=== PATIENT | female | born 1970 | race Two or more races ===

== ENCOUNTER 2017-12-06 08:34 | Outpatient (CLI) | payer OTHER ==
[~2017-12-06 08:34] MED LIST: FLUCONAZOLE200 MG PO; PERCOCET 5/321 UDTAB PO; ULTRACET; ZYRTEC10 MG
== END 2017-12-06 08:40 | disposition home or self-care (01) ==
LOC: SONOGRAMA 08:34
DX: E06.1 Subacute thyroiditis (principal)

== ENCOUNTER 2018-08-11 07:12 | Outpatient (CLI) | payer OTHER | END 2018-08-11 07:27 | disposition home or self-care (01) | LOC: TOM 07:12 | DX: N20.0 Calculus of kidney (principal) ==

== ENCOUNTER 2018-10-28 08:19 | Day surgery (SDC) | payer OTHER ==
[~2018-10-28 08:19] MED LIST changes: +MEDROL4 MG PO; +PROTONIX40 MG PO; +SINGULAIR10 MG PO; +SYMBICORT 16010.2 GM IH; +VENTOLIN HFA18 GM IH; +VISTARIL25 MG PO; +ZANTAC300 MG PO
== END 2018-10-28 12:20 | disposition home or self-care (01) ==
LOC: CIR LITO 08:19 → CIR.AMB 09:30 → CIR LITO 09:30
DX: N20.0 Calculus of kidney (principal)

== ENCOUNTER 2018-10-30 01:23 | Day surgery (SDC) | payer OTHER ==
[~2018-10-30] VITALS: Ht 157.5 cm; Wt 68.0 kg
--- NOTE | 2018-10-30 01:48 | NUR ---
SE RECIBE PTE ALERTA Y ORIENTADA POR CHEVY. PTE REFIERE DOLOR EN COSTADO DIEGO Y VOMITOS X6 EN LA NOCHE.
--- NOTE | 2018-10-30 04:53 | NUR ---
EVALUA PACIENTE Y ORDENA TX MEDICO DEL CUAL PACIENTE ES ORIENTADO,EL MISMO REFIERE ENTENDER.SE COLECTAN MUESTRAS DE LABORATORIOS Y ADMINISTRAN MEDICAMENTO LOVE ORDEN MEDICA SIGUIENDO MEDIDAS ASEPTICAS. PROCEDIMIENTOS LLEVADOS A CABO POR YMIKE.
--- NOTE | 2018-10-30 08:56 | NUR ---
PTE ALERTA Y ORIENTADA X3 ESFERAS,EN CHRISTINE CON BARANDAS ELEVADAS,AREA DE VENOPUNCION PATENTE Y MIRIAM DE EDEMA CON FLUIDOS DE MANTENIMIENTO BAJANDO SIN DIFICULTAD.PTE REFIERE DOLOR Y SE NOTIFICA A DR AVINA.PTE EN ESPERA DE EVALUACION DE DR HOLCOMB.
--- NOTE | 2018-10-30 15:42 | NUR ---
PACIENTE AL MOMENTO ESTABLE, ALERTA Y ORIENTADA X3, SIGNOS VITALES ESTABLES. PACIENTE AL MOMENTO A CONSULTA CON DR. HOLCOMB. SE CONTINUA MONITOREANDO POR CAMBIOS SIGNIFICATIVOS.
== END 2018-10-31 10:00 | disposition home or self-care (01) ==
LOC: ER 01:23 → CIR.AMB 18:53 → O/R 18:56 → SURH 18:56 → ER 18:56 → CIR.AMB 10-31 10:00 → EDSTATUS 10-31 13:00 → SURH 10-31 20:03 → O/R 10-31 20:03
DX: N20.2 Calculus of kidney with calculus of ureter (principal); E86.0 Dehydration

== ENCOUNTER 2018-12-12 08:58 | Outpatient (CLI) | payer OTHER | END 2018-12-12 17:00 | disposition home or self-care (01) | LOC: SONOGRAMA 08:58 | DX: M79.18 Myalgia, other site (principal); K20.8 Other esophagitis; E04.2 Nontoxic multinodular goiter; N20.0 Calculus of kidney ==

== ENCOUNTER 2018-12-16 07:34 | Outpatient (CLI) | payer OTHER | END 2018-12-16 07:53 | disposition home or self-care (01) | LOC: TOM 07:34 | DX: R51 Headache (principal) ==

== ENCOUNTER 2018-12-27 08:03 | Outpatient (CLI) | payer OTHER | END 2018-12-27 08:19 | disposition home or self-care (01) | LOC: MRI 08:03 | DX: I65.29 Occlusion and stenosis of unspecified carotid artery (principal); R55 Syncope and collapse; R51 Headache; I72.8 Aneurysm of other specified arteries; I65.09 Occlusion and stenosis of unspecified vertebral artery; Q28.2 Arteriovenous malformation of cerebral vessels | CPT/HCPCS: 70544; 70553 ==

== ENCOUNTER 2019-03-14 07:27 | Outpatient (CLI) | payer OTHER | END 2019-03-14 07:30 | disposition home or self-care (01) | LOC: NUCLEAR 07:27 | DX: R07.89 Other chest pain (principal); R55 Syncope and collapse | CPT/HCPCS: 93880; 78452; 93017; A9500 ==

== ENCOUNTER 2021-07-07 07:47 | Outpatient (CLI) | payer OTHER | END 2021-07-07 08:06 | disposition home or self-care (01) | LOC: MRI 07:47 | PROVIDERS: ATTEND Neuromusculoskeletal Medicine & OMM | DX: R55 Syncope and collapse (principal) | CPT/HCPCS: 70553 ==

== ENCOUNTER 2022-09-10 09:12 | Outpatient (CLI) | payer OTHER | END 2022-09-10 09:15 | disposition home or self-care (01) | LOC: MAMO-SONO 09:12 | PROVIDERS: ATTEND Specialist | DX: Z12.31 Encounter for screening mammogram for malignant neoplasm of breast (principal); N63.0 Unspecified lump in unspecified breast; D25.9 Leiomyoma of uterus, unspecified ==

== ENCOUNTER → 2022-09-10 09:24 | Outpatient (CLI) | payer OTHER | END | disposition home or self-care (01) | LOC: LAB 08:54 | PROVIDERS: ATTEND Specialist | DX: N95.1 Menopausal and female climacteric states (principal) ==

== ENCOUNTER 2022-09-10 10:43 | Outpatient (CLI) | payer OTHER | END 2022-09-10 10:44 | disposition home or self-care (01) | LOC: NUCLEAR 10:43 | PROVIDERS: ATTEND Specialist | DX: M85.80 Other specified disorders of bone density and structure, unspecified site (principal) ==

== ENCOUNTER 2023-09-23 13:33 | Outpatient (CLI) | payer OTHER | END 2023-09-23 13:56 | disposition home or self-care (01) | LOC: MAMO-SONO 13:33 | PROVIDERS: ATTEND Specialist | DX: Z12.31 Encounter for screening mammogram for malignant neoplasm of breast (principal); N63.0 Unspecified lump in unspecified breast; R10.2 Pelvic and perineal pain ==

== ENCOUNTER 2024-09-26 12:56 | Outpatient (CLI) | payer OTHER | END 2024-09-26 13:07 | disposition home or self-care (01) | LOC: MAMO-SONO 12:56 | PROVIDERS: ATTEND Specialist | DX: N63.0 Unspecified lump in unspecified breast (principal); Z12.31 Encounter for screening mammogram for malignant neoplasm of breast; R10.2 Pelvic and perineal pain ==

== ENCOUNTER 2024-12-01 12:35 | Outpatient (CLI) | payer OTHER | END 2024-12-01 12:42 | disposition home or self-care (01) | LOC: RAD 12:35 | PROVIDERS: ATTEND Internal Medicine Rheumatology | DX: M19.041 Primary osteoarthritis, right hand (principal); M19.042 Primary osteoarthritis, left hand ==

== ENCOUNTER 2025-01-08 13:23 | Outpatient (CLI) | payer OTHER | END 2025-01-08 13:24 | disposition home or self-care (01) | LOC: NUCLEAR 13:23 | PROVIDERS: ATTEND Internal Medicine Rheumatology | DX: M81.0 Age-related osteoporosis without current pathological fracture (principal) ==